=== PATIENT | female | born 2000 | race Caucasian/White ===

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

== ENCOUNTER 2020-04-01 13:05 | Emergency (ER) | payer OTHER ==
[~2020-04-01] VITALS: Ht 170.2 cm; Wt 57.6 kg
[~2020-04-01 13:05] MED LIST changes: +BACTRIM DS TAB1 EACH PO; +NAPROSYN500 MG PO
[2020-04-01] MEDS ORDERED: CYCLOBENZAPRINE5 MG PO (13:54)
[2020-04-01] MEDS ORDERED: TYLENOL WITH CO1 TA1 PO (13:54)
[2020-04-01 14:25] VITALS: BP 98/79
== END 2020-04-01 14:31 | disposition home or self-care (01) ==
LOC: M.ERS
DX: S09.8XXA Other specified injuries of head, initial encounter (principal); Y08.89XA Assault by other specified means, initial encounter; Y93.89 Activity, other specified; Y92.89 Other specified places as the place of occurrence of the external cause; Y99.8 Other external cause status